=== PATIENT | female | born 1960 ===

== ENCOUNTER 2017-08-16 12:30 | Inpatient (IN) | payer MEDICAID ==
[2017-08-16] MEDS ORDERED: NICOTINE POLACRILEX 2 MG GUM B PRN (15:03)
[2017-08-16] MEDS ORDERED: OLANZapine DISINTEGR 10 MG TAB PO PRN (15:03)
[2017-08-16] MEDS ORDERED: MAGNESIUM HYDROXIDE 30 ML UDCUP PO PRN (15:03)
[2017-08-16] MEDS ORDERED: MAG HYDROX/AL HYDROX/SIMETH 30 ML UDCUP PO PRN (15:03)
[2017-08-16] MEDS ORDERED: clonazePAM 1 MG TAB PO PRN (15:05)
[2017-08-16] MEDS ORDERED: OLANZapine DISINTEGR 5 MG TAB PO PRN (15:30)
--- NOTE | 2017-08-16 20:26 | BCON ---
[f rep st] BEHAVIORAL HEALTH CONSULTATION INTERNAL MEDICINE CONSULTATION DATE OF CONSULTATION: 08/16/2017 REFERRING PHYSICIAN: Didier Shields MD REASON FOR REFERRAL: Medical clearance for inpatient behavioral health stay. HISTORY OF PRESENT ILLNESS: This patient was transferred from the [facility] Emergency Department in [place], where she had presented with homicidal ideation and intent to buy a gun and to kill 3 specific people. She had mental health evaluation and it was determined that inpatient psychiatric care would be appropriate, so she was transferred to [place] for that. She currently complains of some right lateral thigh pain. She reports that she has IT band syndrome. She is otherwise without acute complaints. PAST MEDICAL HISTORY: 1. Cardiomyopathy. 2. Coronary artery disease. 3. Hypothyroidism. 4. Hypertension. 5. Dyslipidemia. 6. Posttraumatic stress disorder. 7. Bipolar disorder. 8. Depression. 9. Fibromyalgia. 10. Helicobacter pylori infection. 11. Obesity. 12. Gastroesophageal reflux disorder. 13. Ventricular tachycardia. 14. Continuous opiate dependence PAST SURGICAL HISTORY: She has had an appendectomy and a tubal ligation. MEDICATIONS PRIOR TO ADMISSION: 1. Methadone 20 mg p.o. daily 2. Clonidine 0.2 mg 3. Sumatriptan 100 mg p.r.n. 4. Clonazepam 0.5 mg p.r.n. 5. Albuterol 1-2 puffs q.4 hours p.r.n. 6. Bupropion 300 mg p.o. daily. 7. Clonidine 0.3 mg p.o. daily. 8. Levothyroxine 50 mcg p.o. daily. 9. Metoprolol 50 mg twice daily. 10. Omeprazole 20 mg p.o. daily. 11. Temazepam 15 mg p.o. q.h.s. p.r.n. ALLERGIES: There are no known drug allergies. SOCIAL HISTORY: She is a smoker. She has a history of heroin abuse, but is on methadone maintenance, and per staff report, she is on a long, slow taper of the methadone. FAMILY HISTORY: Father had cancer and glaucoma. Mother had dyslipidemia and a uterine leiomyoma. REVIEW OF SYSTEMS: She reports pain in the right lateral thigh. She says she has episodes of a spinning sensation, and she has also had episodes of poor balance and falling. She reports that recently her doctor at [facility] has cleaned out her ears. She thinks she has some hearing loss. She has fallen twice in the past week and has periodic falls which are not directly related to the episodes of spinning. She reports that she has had a 60 pounds weight gain in the past year and attributes that to being on methadone. She denies cough or dyspnea. She denies chest pain or palpitations. She denies nausea, vomiting, constipation, or diarrhea. She has an okay appetite. She reports that when she wakes up in the morning, she has pain in all her limbs as if she had been beaten with a baseball bat and says that a physical therapist has given her strategies to alleviate that pain and get out of bed. Otherwise, a 10-point review of systems is negative. PHYSICAL EXAM: VITALS: Have not yet been taken. This morning in [place], blood pressure was 142/84, pulse was 63, respirations were 16 per minute, temperature was 36.9 degrees centigrade, oxygenation was 97% on room air. Her weight was 69.4 kg, for a body mass index of 27.1. GENERAL: This is an obese appearing woman, appears her chronologic age. Cooperative and in no acute distress, dressed in hospital scrubs, sitting up on her bed. HEENT: Extraocular movements are intact. Pupils are equal, round, reactive to light. Mucous membranes are moist. She has an uncrowded airway, Mallampati class 2. NECK: Supple. HEART: There is regular rate and rhythm with no murmurs, rubs, or gallops. LUNGS: Clear to auscultation bilaterally. ABDOMEN: Benign. EXTREMITIES : There is no cyanosis, clubbing, or edema. NEUROLOGIC: She is alert and oriented x3. Cranial nerves 2-12 are grossly intact. There is no focal weakness , and sensation is intact to light touch. LABORATORY STUDIES: Drawn in the emergency department in [place], serum glucose was slightly elevated at 104. Comprehensive metabolic panel was otherwise normal. Urine and serum toxicology screens were negative for acetaminophen or substances of abuse, including negative for methadone. CBC was overall within normal limits. TSH was normal. Salicylate level was negative. Alcohol breath test was negative. ASSESSMENT/RECOMMENDATIONS: 1. Mental health issues pending further evaluation and management per Psychiatry and the mental health team. 2. Chronic medical conditions of hypothyroidism, gastroesophageal reflux disorder, hypertension, coronary artery disease and cardiomyopathy. Advise continuing her chronic medications. It is of interest that there is no aspirin or other anti-platelet agent prescribed, though there are diagnoses of coronary artery disease and cardiomyopathy. Might inquire of her primary care provider at the [facility] regarding whether she was on these medications. 3. Dizziness and falls. I will order a Physical Therapy consult. 4. Opiate dependence on methadone. I understand that methadone will be prescribed per Psychiatry. 5. Tobacco dependence syndrome. Encouraged smoking cessation. 6. Obesity and weight gain. Advised caution regarding medications that might cause further weight gain, though her psychosocial stabilization clearly takes priority. It seems unlikely to me that methadone has cause weight gain. I see no medical contraindications to this patient's continued stay on the inpatient behavioral health unit or to any psychiatric medications or procedures. Thank you very much for including me in the care of this patient, and please do not hesitate to contact me or the hospitalist service should there be need for further medical evaluation. /[id number]/MODL and [id number]/MODL JAMIE
[2017-08-16] MEDS: hydrOXYzine HCL 50 MG TAB PO SCH (21:19)
[2017-08-16] MEDS: LORazepam 0.5 MG TAB PO PRN (21:19)
[2017-08-17] MEDS: buPROPion XL 150 MG TAB PO SCH (08:12)
[2017-08-17] MEDS: METHADONE HCL 10 MG TAB PO SCH (08:12)
[2017-08-17] MEDS: LEVOTHYROXINE 75 MCG TAB PO SCH (10:02)
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
[2017-08-17] MEDS: CITALOPRAM 20 MG TAB PO SCH (17:00)
--- NOTE | 2017-08-17 17:16 | SOAPPROG ---
SOAP Progress Note Assessment/Plan: Assessment: Cellulitis. With crusting and without purulence or evidence of abscess it is more likely streptococcal than staphylococcal. Will treat empirically with amoxicillin. Please inform medical biller if symptoms do not resolve. 08/17/17 17:16 Subjective: Asked to see patient regarding ear discomfort. She reports that she has a red tender crusting right earlobe that has been going on for weeks. She periodically has to clean the crusting off of it. She also thinks her ear feels full. Objective: Vital Signs Temp Pulse Resp BP Pulse Ox 36.8 C 64 16 101/57 L 95 08/17/17 06:00 08/17/17 08:15 08/17/17 08:15 08/17/17 08:15 08/17/17 08:15 Physical Exam - Physical Exam General Appearance: WD/WN, alert, no apparent distress EENT: TMs normal (On right), other (Right earlobe with approximately 1 cm area of erythema and tenderness. Ear has been pierced but but the whole in the earlobe does not appear to be patent) Neck: lymphadenopathy (R) (2 lymph nodes palpable under the angle of the jaw.) ICD10 Worksheet Patient Problems: Problems Problem Status Onset Cellulitis of earlobe Acute - ICD10 Problem Qualifiers (1) Cellulitis of earlobe
[2017-08-17] MEDS ORDERED: NAPROXEN SODIUM 220 MG TAB PO ONE (20:30)
[2017-08-17] MEDS: hydrOXYzine HCL 50 MG TAB PO SCH (20:58)
[2017-08-17] MEDS: LORazepam 0.5 MG TAB PO PRN (22:28)
[2017-08-18] MEDS: CITALOPRAM 20 MG TAB PO SCH (07:48)
[2017-08-18] MEDS: METHADONE HCL 10 MG TAB PO SCH (07:49)
[2017-08-18] MEDS: buPROPion XL 150 MG TAB PO SCH (07:49)
[2017-08-18] MEDS: LEVOTHYROXINE 75 MCG TAB PO SCH (10:15)
--- NOTE | 2017-08-18 17:50 | SOAPPROG ---
SOAP Progress Note Assessment/Plan: Assessment: 56 yo woman with h/o Bipolar Disorder and cluster B personality traits who was admitted after saying she wanted to kill staff at [facility] with AK-47 b/c her therapist was late for her appointment. Plan: 08/18/17 17:44 1. Patient doing "much better" on Celexa and Wellbutrin. She is tolerating addition of Citalopram without any SE's or physical complaints. 2. No longer has SI/HI. 3. Patient says she is willing to return to [facility] to see therapist one last time to terminate treatment, but says she plans to "find a new therapist" on her own. MD encouraged patient to discuss referrals when she sees her providers at [facility], but says she will look for one "myself." She has PCP at [facility] who is willing to continue to prescribe psychotropics. Subjective: Met with patient, reviewed chart and d/w staff. Patient says she is no longer having any thoughts, plan or intent to harm herself or anyone else. She says she doesn't want to return to [facility] b/c they give "really bad" care. However, and Paul GARNER encouraged her to see her therapist at least one more time to transition services to a new clinic/provider. informed patient he is not aware of any therapists or psychiatrists outside of [facility] who take Medicaid clients, but that [facility] will provide her referrals if there are any in the area. She has a prescriber at [facility], her PCP, who is willing to continue treating her. She has received therapy in past at [facility], but she says they told her that they can't provide therapy indefinitely. They suggested she establish care with [facility]. Objective: Vital Signs Temp Pulse Resp BP Pulse Ox 36.8 C 65 14 99/60 L 94 08/18/17 06:00 08/18/17 06:00 08/18/17 06:00 08/18/17 06:00 08/18/17 06:00 MSE: Affect: Euthymic Mood: "Good" TP: Linear TC: Denies any SI/HI, no AH/VH Insight/Judgment: Fair - Time Spent With Patient Time Spent With Patient: 25" - Pending Discharge Pending Discharge Within 24 Hours: Yes Pending Discharge Date: 08/19/17 (Plan to d/c tomorrow. Patient agrees to f/u with P) Pending Discharge Time: 11:00 ICD10 Worksheet Patient Problems: Problems Problem Status Onset Cellulitis of earlobe Acute
[2017-08-18] MEDS: hydrOXYzine HCL 50 MG TAB PO SCH (20:18)
[2017-08-19 06:58] VITALS: BP 105/68
[2017-08-19] MEDS: METHADONE HCL 10 MG TAB PO SCH (08:20)
[2017-08-19] MEDS: CITALOPRAM 20 MG TAB PO SCH (08:21)
[2017-08-19] MEDS: buPROPion XL 150 MG TAB PO SCH (08:22)
[2017-08-19] MEDS: LEVOTHYROXINE 75 MCG TAB PO SCH (10:36)
--- NOTE | 2017-08-19 15:59 | BDS ---
[f rep st] BEHAVIORAL HEALTH DISCHARGE SUMMARY REASON FOR ADMISSION: The patient is a 56-year-old female with a history of bipolar disord er. She was admitted on transfer from an outside facility after presenting to her appointment at [facility] in [place] appearing agitated. She says that she was in a bad mood, and that she was remembering a ll the losses that she had suffered and the lack of support in her life. She says that therapist did not care about her and "was a total idiot." The M1 states that the patient made threats of killing people and stated that she wanted to get an AK 47. When patient was interviewed by Dr. Shields on [facility] inpatient unit, she said that she was "just mad." Denied having any homicidal thoughts, plans, or intent. She believes that her medicines are not stable, and her mood is not good. She says that she feels depressed most of the time and most recently has been feeling more irritable and frustrated. She believes that people in general are not likable and that she has fantasies of committing violence against other people, but says that she would "never actually do that." She does not own any weapon s, does not have any access to firearms, and she denies that she has any plan or intent to harm herse lf or hurt anybody else. She says that she feels "disrespected" by [facility] because of the way that she has been treated there in the past and says that she does not like the fact that [facility] only option that she has, being on Medicaid, for outpatient mental health services is through [facility]. ADMITTING DIAGNOSES: 1. Bipolar disorder, type 1, most recent episode mixed; severe, without psychosis. 2. Post-traumatic stress disorder. 3. Chronic pain. 4. Opioid-use disorder, moderate. 5. Multiple chronic medical conditions. 6. Lack of support. 7. Lack of active outpatient mental health treatment. PHYSICAL EXAMINATION: The admitting physical examination was performed by Dr. Armin Le. Humberto talavera see his H and P for more details. ADMISSION LABS: She had no admission labs because she was admitted from an outside facility. HOSPITAL COURSE: Patient was started on citalopram 10 mg in addition to bupropion for her depression and anxiety. She told Dr. Shields that she had done well on this medication in the past and she wan tatiana to resume this medication in addition to her Wellbutrin to help with her anxiety and her depressi on. She tolerated the medication; denied any physical complaints and no side effects from being on t his new medication, and she reported that she was feeling more stable and that she had improved mood after this medication was added to her regimen. This MD met with the patient on 08/18/2017, and she reported that she was feeling "much better." She said that she plans to "find a new therapist" on her own, but when this MD and the career technical education instructor encouraged the patient to return to [facility] for at least 1 termination session with her current therapist , she said that she would be willing to do that. She has a prescriber at the [facility] who is giv ing her her medications that she would like to continue to see. Patient denied having any thoughts, plans, or intent to hurt herself or anyone else. She said that she would "never do that" in referenc e to hurting other people. She says that she does not like getting treatment at [facility] because "they gi ve really bad care" but says that she would go back and discuss what her options are with her current therapist and/or case technician. She said that she would like to find another therapist that takes [place], but understands that it is difficult to find Medicaid providers. She says that she will ask for referrals from her current [facility] providers if they have any better solutions for her. She has seen a therapist at [facility] in the past, but they told her that they could not continue to provide t herapy service for her "indefinitely," and that she needed to establish care with a long-term provide r; but patient says that she has had difficulty finding anyone who takes Medicaid. On day of discharge, patient had a bright affect. Her affect was normal range. She was euthymic. S he denied feeling depressed, sad, hopeless, helpless, or worthless. She was optimistic, even though she was frustrated with her options for outpatient mental health. She was future oriented and lookin g forward to getting out of the hospital. She said that she was feeling "more stable." Denied any t houghts, plans, or intent to hurt herself or anyone else. CONDITION AT DISCHARGE: As mentioned previously, the patient felt that she was very stable. She was in a good mood. Her affect was euthymic. She had no complaints about her medications. She felt th at the new medication, Celexa, was really helping. She had no thoughts of suicide. DISCHARGE MEDICATIONS: Included all the medications that she was on when she was admitted plus the n ew medication, Celexa. She was also prescribed amoxicillin by Dr. Le to treat a skin infection on her earlobe. Amoxicillin 500 mg p.o. q.8 hours for another 10 doses, bupropion 150 mg XL 2 tabs p .o. daily, Celexa 10 mg p.o. daily, clonazepam 1 mg p.o. b.i.d., clonidine 0.1 mg p.o. b.i.d., hydrox yzine 50 mg p.o. q.h.s., levothyroxine 75 mcg p.o. daily. She also has sumatriptan 100 mg p.o. daily p.r.n., which she has at home. She did not need any additional med and so she was not given a presc ription for that when she left. DISCHARGE DIAGNOSES: 1. Bipolar disorder, type 1, most recent episode mixed, severe, without psychotic features; resolved during this admission. 2. Posttraumatic stress disorder. 3. Opioid-use disorder, moderate. 4. Chronic pain. 5. Multiple chronic medical conditions. 6. Lack of social support. 7. Lack of satisfaction with her current outpatient treatment. DISPOSITION: Patient left the hospital with followup appointment on August 22 at 11:30 a.m. with [facility] [employer]. LEGAL COURSE: The patient had been switched to voluntary status upon the expiration of her M1 hold. /[id number]/MODL
== END 2017-08-19 13:50 | disposition home or self-care (01) | DRG 885 ==
LOC: BBEH 12:30
PROVIDERS: ADMIT Psychiatry & Neurology Psychiatry; ATTEND Psychiatry & Neurology Psychiatry
DX: F31.63 Bipolar disorder, current episode mixed, severe, without psychotic features (principal); F43.12 Post-traumatic stress disorder, chronic; F11.20 Opioid dependence, uncomplicated; H60.11 Cellulitis of right external ear; F10.21 Alcohol dependence, in remission; R26.89 Other abnormalities of gait and mobility; M76.31 Iliotibial band syndrome, right leg; E66.9 Obesity, unspecified; I25.10 Atherosclerotic heart disease of native coronary artery without angina pectoris; Z68.26 Body mass index [BMI] 26.0-26.9, adult; I42.9 Cardiomyopathy, unspecified; E03.9 Hypothyroidism, unspecified; I10 Essential (primary) hypertension; E78.5 Hyperlipidemia, unspecified; M79.7 Fibromyalgia; K21.9 Gastro-esophageal reflux disease without esophagitis; Z91.5 Personal history of self-harm
CPT/HCPCS: 97161-GP